=== PATIENT | male | born 1995 | race Caucasian/White ===

== ENCOUNTER 2016-05-27 21:19 | Emergency (ER) | payer OTHER ==
[~2016-05-27] VITALS: Ht 190.5 cm; Wt 93.0 kg
[2016-05-28 02:39] VITALS: BP 143/63
[2016-05-28] MEDS ORDERED: KETOROLAC 60 MG/2 ML VIAL (J1885) IM ONE (04:45)
[2016-05-28] MEDS ORDERED: ACETAMINOPHEN 325 MG TAB PO ONE (04:45)
[2016-05-28] MEDS ORDERED: KETOROLAC 30 MG/ML VIAL (J1885) As Ordered ONE (04:55)
--- NOTE | 2016-05-28 07:27 | ECGEPIP ---
Stationary ECG Study [facility] [place] - ED Test Date: 2016-05-27 Pat Name: ALAN MOORE Department: Room: - Gender: M [employer] Supervisor: eliel : 1995 Requested By: AMI PÉREZ Order Number: [id number] Reading MD: Andra Calderon Measurements Intervals [place] Rate: 87 P: 64 AL: 143 QRS: -13 QRSD: 90 T: 24 QT: 336 QTc: 405 Interpretive Statements SINUS RHYTHM INCREASED RATE 03/15/15 Electronically Signed On 05-28-2016 7:26:59 EDT by Andra Calderon
--- NOTE | 2016-05-28 08:09 | REP ---
Clinical: Acute cough . Comparison: 01/16/2016 . Technique: PA and lateral. Findings: The mediastinum and cardiac silhouette are normal. The lung goyal are clear and without acute consolidation, effusion, or pneumothorax. The skeletal structures are intact and normal. Impression: 1. No acute cardiopulmonary process. Signed by Ryan Mott MD 05/28/2016 08:01 A
== END 2016-05-28 06:18 | disposition home or self-care (01) ==
LOC: M ED 22:25
DX: B34.9 Viral infection, unspecified (principal); J45.909 Unspecified asthma, uncomplicated; F17.210 Nicotine dependence, cigarettes, uncomplicated
CPT/HCPCS: 71020; 87804; 93005; 96372; 99283; J1885

== ENCOUNTER 2017-09-13 13:58 | Emergency (ER) | payer SELFPAY, OTHER ==
[2017-09-13] MEDS ORDERED: LIDOCAINE 1% MDV 20ML VIAL As Ordered (14:59)
[2017-09-13] MEDS: LIDOCAINE 1% MDV 20ML VIAL SC (15:05)
== END 2017-09-13 15:45 | disposition home or self-care (01) ==
LOC: M ED 13:58
DX: S01.511A Laceration without foreign body of lip, initial encounter (principal); W01.190A Fall on same level from slipping, tripping and stumbling with subsequent striking against furniture, initial encounter; Y92.012 Bathroom of single-family (private) house as the place of occurrence of the external cause; F17.210 Nicotine dependence, cigarettes, uncomplicated
CPT/HCPCS: 12011

== ENCOUNTER 2017-09-18 11:55 | Emergency (ER) | payer SELFPAY, OTHER | END 2017-09-18 12:44 | disposition home or self-care (01) | LOC: M ED 11:55 | DX: Z48.02 Encounter for removal of sutures (principal); F17.210 Nicotine dependence, cigarettes, uncomplicated | CPT/HCPCS: 99282 ==

== ENCOUNTER 2018-01-01 21:26 | Emergency (ER) | payer SELFPAY ==
[2018-01-01] MEDS: KETOROLAC TROMETHAMINE 10 MG TAB PO (22:03)
== END 2018-01-01 23:03 | disposition home or self-care (01) ==
LOC: M ED 21:26
DX: M25.462 Effusion, left knee (principal); J45.909 Unspecified asthma, uncomplicated; F90.9 Attention-deficit hyperactivity disorder, unspecified type; F17.210 Nicotine dependence, cigarettes, uncomplicated
CPT/HCPCS: 73564

== ENCOUNTER 2018-09-18 17:49 | Emergency (ER) | payer SELFPAY ==
[~2018-09-18] VITALS: Ht 190.5 cm; Wt 96.8 kg
[~2018-09-18 17:49] MED LIST: KETO10TAB PO
[2018-09-18 23:05] VITALS: BP 131/81
== END 2018-09-18 23:07 | disposition home or self-care (01) ==
LOC: M ED 17:49
DX: I88.9 Nonspecific lymphadenitis, unspecified (principal); J45.909 Unspecified asthma, uncomplicated; F17.200 Nicotine dependence, unspecified, uncomplicated

== ENCOUNTER 2019-06-25 15:04 | Emergency (ER) | payer MEDICAID, SELFPAY ==
[~2019-06-25] VITALS: Ht 190.5 cm; Wt 90.7 kg
[2019-06-25] MEDS ORDERED: NALT50TA4 PO (15:09)
[2019-06-25] MEDS ORDERED: OLAN5TAB PO (15:09)
[2019-06-25] MEDS ORDERED: NS 1,000 ML IV ONE (15:30)
[2019-06-25] MEDS ORDERED: PANTOPRAZOLE 40MG VIAL (C9113 PER 1) IV ONE (15:30)
[2019-06-25] MEDS ORDERED: METOCLOPRAMIDE INJ 10MG/2ML VIAL (J2765 PER 1) IV ONE (15:30)
[2019-06-25 15:49] LABS: BASO # 0.1 10^3/uL (0.0-0.2); EOS # 0.2 10^3/uL (0.0-0.5); EOS % 3.5 % (0.0-3.0); HEMATOCRIT 43.7 % (42.0-52.0); HEMOGLOBIN 15.3 g/dl (13.5-17.5); LYMPH # 1.2 10^3/uL (1.5-5.0); LYMPH % 19.6 % (24.0-44.0); MEAN CORPUSCULAR HEMOGLOBIN 30.3 pg (27.0-33.0); MEAN CORPUSCULAR VOLUME 86.5 fl (80.0-96.0); MONO # 0.6 10^3/uL (0.0-0.8); MONO % 10.3 % (0.0-5.0); NEUTROPHILS # 3.9 10^3/uL (1.5-8.5); NEUTROPHILS % 65.3 % (36.0-66.0); PLATELET COUNT, AUTOMATED 228 10^3/uL (150-450); RED BLOOD COUNT 5.05 10^6/uL (4.30-6.10)
[2019-06-25] MEDS ORDERED: ISOVUE-370 76% 100ML VIAL As Ordered ONE (15:50)
[2019-06-25 16:19] LABS: ALBUMIN 3.9 GM/DL (3.2-5.2); ALT/SGPT 289 U/L (12-78); BILIRUBIN,DIRECT 0.3 MG/DL (0.0-0.2); BILIRUBIN,TOTAL 0.8 MG/DL (0.2-1.0); LIPASE 70 U/L (73-393); TOTAL PROTEIN 7.3 GM/DL (6.4-8.2)
[2019-06-25 16:23] LABS: MONO SCRN NEGATIVE (NEGATIVE)
[2019-06-25] MEDS ORDERED: ONDA4TAB6 PO (16:45)
[2019-06-25 16:59] VITALS: BP 118/67
[2019-06-26 10:05] LABS: HEPATITIS B SURFACE ANTIGEN NEGATIVE (NEGATIVE)
--- NOTE | 2019-06-26 10:12 | REP ---
CT ABDOMEN AND PELVIS WITH CONTRAST: TECHNIQUE: Axial contrast enhanced images from the lung bases to the pubic symphysis using 100 mL Isovue 370 intravenous contrast material with multiplanar reformations. Visualized lung bases are clear. The liver, spleen, adrenals, pancreas, and kidneys are unremarkable. There is no hydronephrosis. There are small gallstones in the dependent portion of the gallbladder. There appears to be diffuse gallbladder wall thickening and edema. There is no definite biliary dilatation. The findings may indicated cholecystitis. There is no abdominal aortic aneurysm. There is no adenopathy. There is no free air. No bowel wall thickening is seen. The appendix is normal. No pelvic mass is seen. Urinary bladder is unremarkable. IMPRESSION: Small gallstones in the gallbladder with diffuse gallbladder wall thickening and edema. Findings may indicate cholecystitis. No evidence of biliary dilatation. Electronically Signed by Rios Olvera MD 06/26/2019 11:54 A
[2019-06-26 10:32] LABS: HEPATITIS C VIRUS ABY INDEX 0.1 INDEX (<0.8)
[2019-06-26 10:33] LABS: HEPATITIS B CORE ANTIBODY IGM NEGATIVE (NEGATIVE)
[2019-06-26 10:35] LABS: HEPATITIS A ANTIBODY IGM NEGATIVE (NEGATIVE)
[2019-06-29] MEDS ORDERED: HYDR-3713 PO (13:22)
== END 2019-06-25 17:01 | disposition home or self-care (01) ==
LOC: M ED 15:04
DX: K80.20 Calculus of gallbladder without cholecystitis without obstruction (principal); F19.10 Other psychoactive substance abuse, uncomplicated; F43.10 Post-traumatic stress disorder, unspecified; F17.200 Nicotine dependence, unspecified, uncomplicated; F90.9 Attention-deficit hyperactivity disorder, unspecified type; Z98.890 Other specified postprocedural states; Z79.899 Other long term (current) drug therapy
CPT/HCPCS: 36415; 74177; 80047; 80076; 83690; 85025; 86308; 86705; 86709; 86803; 87340; 96361; 96374; 96375; 99284; C9113; J2765; Q9967

== ENCOUNTER → 2019-06-27 | Outpatient (CLI) | payer SELFPAY ==
[~2019-06-27] MED LIST changes: +HYDR-3713 PO; +NALT50TA4 PO; +OLAN5TAB PO; +ONDA4TAB6 PO
[2019-06-27 11:49] LABS: HEMATOCRIT 43.8 % (42.0-52.0); HEMOGLOBIN 15.6 g/dl (13.5-17.5); MEAN CORPUSCULAR HEMOGLOBIN 31.3 pg (27.0-33.0); MEAN CORPUSCULAR HGB CONC 35.6 g/dl (32.0-36.5); PLATELET COUNT, AUTOMATED 237 10^3/uL (150-450); RED BLOOD COUNT 4.98 10^6/uL (4.30-6.10); WHITE BLOOD COUNT 7.2 10^3/uL (4.0-10.0)
[2019-06-27 12:18] LABS: ALT/SGPT 240 U/L (12-78); BILIRUBIN,DIRECT 0.1 MG/DL (0.0-0.2); BILIRUBIN,TOTAL 0.5 MG/DL (0.2-1.0); BLOOD UREA NITROGEN 12 MG/DL (7-18); CARBON DIOXIDE LEVEL 31 MEQ/L (21-32); CHLORIDE LEVEL 107 MEQ/L (98-107); CREATININE FOR GFR 0.82 MG/DL (0.70-1.30); GLOMERULAR FILTRATION RATE > 60.0 (>60); GLUCOSE, FASTING 86 MG/DL (70-100); POTASSIUM SERUM 4.4 MEQ/L (3.5-5.1); SODIUM LEVEL 141 MEQ/L (136-145); TOTAL PROTEIN 7.3 GM/DL (6.4-8.2)
== END ==
LOC: M LAB 11:24
PROVIDERS: ATTEND Surgery
DX: K80.00 Calculus of gallbladder with acute cholecystitis without obstruction (principal)

== ENCOUNTER → 2019-07-03 | Outpatient (CLI) | payer OTHER, SELFPAY | LOC: M LABSMTC 09:33 | PROVIDERS: ATTEND Anesthesiology | DX: Z01.818 Encounter for other preprocedural examination (principal); Z11.59 Encounter for screening for other viral diseases ==

== ENCOUNTER 2019-07-06 06:09 | Day surgery (SDC) | payer OTHER, SELFPAY ==
[~2019-07-06] VITALS: Ht 190.5 cm; Wt 89.3 kg
[2019-07-06] MEDS ORDERED: LR 1,000 ML IV ONE (07:00)
[2019-07-06] MEDS ORDERED: AMPICILLIN SOD/SULBACTAM SOD 3 GM in D5W MINI-BAG PLUS 100 ML IV ONE (07:00)
[2019-07-06] MEDS ORDERED: CONRAY-60 60% 50ML VIAL (Q9961) As Ordered ONE (07:15)
[2019-07-06] MEDS ORDERED: LIDOCAINE 1% SDV 30ML VIAL As Ordered ONE (07:15)
[2019-07-06] MEDS ORDERED: BUPIVACAINE HCL 0.25% 30ML VIAL As Ordered ONE (07:16)
[2019-07-06] MEDS ORDERED: MIDAZOLAM INJ 2MG/2ML VIAL (J2250 PER 1MG) As Ordered ONE (07:17)
[2019-07-06] MEDS ORDERED: ONDANSETRON 4MG/2ML VIAL As Ordered ONE (07:17)
[2019-07-06] MEDS ORDERED: LIDOCAINE 2% 100MG/5ML SDV (FOR ANES.) As Ordered ONE (07:17)
[2019-07-06] MEDS ORDERED: dexameTHASONE 4 MG/ML 1ML VIAL (J1100 PER 1MG) As Ordered ONE (07:17)
[2019-07-06] MEDS ORDERED: ROCURONIUM BROMIDE 50 MG/5 ML VIAL As Ordered ONE ×2 (07:17→08:02)
[2019-07-06] MEDS ORDERED: propofoL 200 MG/20 ML VIAL As Ordered ONE (07:17)
[2019-07-06] MEDS ORDERED: fentaNYL 250 MCG/5 ML INJECTION (J3010) As Ordered ONE (07:17)
[2019-07-06] MEDS ORDERED: ACETAMINOPHEN 1000MG 100ML IV BTL (OFIRMEV) (J0131 PER 10MG) As Ordered ONE (07:17)
[2019-07-06] MEDS ORDERED: KETOROLAC 60 MG/2 ML VIAL As Ordered ONE (07:17)
[2019-07-06] MEDS ORDERED: GLYCOPYRROLATE INJ 0.2 MG/ML 2 ML VIAL As Ordered ONE (07:54)
[2019-07-06] MEDS ORDERED: ePHEDrine SULFATE 25 MG/5 ML(5MG/ML) SYRINGE As Ordered ONE (07:58)
[2019-07-06] MEDS ORDERED: SUGAMMADEX SODIUM 500 MG/5 ML VIAL (BRIDION) As Ordered ONE (08:11)
[2019-07-06] MEDS ORDERED: GLUCAGON INJ 1MG VIAL As Ordered ONE (08:35)
[2019-07-06] MEDS ORDERED: HYDR-3713 PO (09:39)
[2019-07-06] MEDS ORDERED: ONDANSETRON 4MG/2ML VIAL IV PRN ×2 (09:45)
[2019-07-06] MEDS ORDERED: KETOROLAC 30 MG/ML 1ML VIAL IV PRN (09:45)
[2019-07-06] MEDS ORDERED: NORCO, ANEXSIA 5/325MG TABLET (HYDROcodone/ACETAMINOPHEN) PO PRN (09:45)
[2019-07-06] MEDS ORDERED: METOCLOPRAMIDE INJ 10MG/2ML VIAL (J2765 PER 1) IV PRN (09:45)
[2019-07-06] MEDS ORDERED: LR 1,000 ML IV SCH (09:45)
[2019-07-06] MEDS ORDERED: fentaNYL 100 MCG/2 ML INJECTION (J3010) IV PRN (09:45)
[2019-07-06] MEDS ORDERED: PERCOCET 5MG/325MG TAB PO PRN (09:45)
--- NOTE | 2019-07-06 09:47 | REP ---
INTRAOPERATIVE CHOLANGIOGRAM: Two views. HISTORY: Laparoscopic cholecystectomy with intraoperative cholangiogram. 34 seconds of fluoroscopy time is reported. FINDINGS: A sequence two last image hold fluoroscopically obtained spot radiographs of the right upper quadrant documents cystic duct contrast injection. No filling defect is seen in the biliary tract as visualized. The duodenum is seen to be opacifying. Electronically Signed by David Quiles MD 07/06/2019 11:53 A
--- NOTE | 2019-07-06 10:32 | ROOPDOC ---
[facility] Report Of Operation Report of Operation DATE OF PROCEDURE: 07/06/19 PREPROCEDURE DIAGNOSES: Cholelithiasis, Acute Cholecystitis. POSTPROCEDURE DIAGNOSES: Cholelithiasis, Acute Cholecystitis. PROCEDURE: Laparoscopic Cholecystectomy with intraoperative cholangiogram., right side transversus abdominis block under Laparoscopic guidance (1% lidocaine and 1/4% marcaine 50 mLs) SURGEON: Efraín Blanchard MD PATIENT LIAISON: ANESTHESIA: General Anesthesia. ESTIMATED BLOOD LOSS: Approximately 20 mL. COMPLICATIONS: none. REMARKS: Patient is a 23-year-old male was seen in the emergency room roughly 2 weeks ago with acute onset of epigastric and right upper quadrant discomfort as well as findings of elevated LFTs mainly the AST and ALT within normal bilirubin diagnosed presumably with either biliary colic or mild acute cholecystitis and was sent to the clinic as an outpatient. Repeat LFT shows normalization of the AST and ALT and no leukocytosis. He is scheduled today for laparoscopic cholecystectomy with intraoperative cholangiogram. PROCEDURE NOTE: Healthy-appearing liver with no nodularities. Distended relatively thin-walled gallbladder minimal acute swelling noted especially at the posterior wall. No ischemia or perforation. Multiple small stones noted within the gallbladder and likewise within the cystic duct which was milked out. DESCRIPTION OF PROCEDURE: Patient was given a dose Unasyn 3 g IV preoperatively for prophylaxis. He was brought to the operating room, laid supine on the table, compression boots placed for DVT prophylaxis. General endotracheal anesthesia started. Her abdomen then prepped and draped in usual sterile fashion. Surgical timeout was performed prior to starting surgery. Entry into the abdomen done through an incision below the umbilicus. A Veress needle was inserted with a controlled fashion. CO2 insufflation started to pressure 15 mmHg. Using the same incision a 5 mm Visiport was placed under direct vision laparoscope. The area underneath the insertion site was inspected and no injury found. She was then placed in steep reverse Trendelenburg. Her right side was tilted up to further expose the gallbladder. Under direct vision a 11 mm epigastric port and 25 mm working ports placed along the right subcostal line. Under laparoscopic visualization, using the training half inch spinal needle transversus abdominis plane block was performed using a combination of 1% lidocaine and 1/4% Marcaine along the right lateral abdominal wall. Operative findings: Liver appears smooth in contour no visible abnormalities. He is thin omentum covering most of the bowels. The gallbladder was noted to be modestly distended but rather soft, no severe inflammation, ischemia is noted. There are free floating stones within the lower body of the gallbladder. A tongue of omentum is adhered to the underside of the wall of the gallbladder. The fundus of the gallbladder was grasped and the gallbladder was elevated superiorly exposing the neck of the gallbladder. The attached omentum was lysed sharply with cautery from the gallbladder wall. The peritoneum overlying the area was opened up and dissected free both anteriorly and posteriorly to help with retraction of the gallbladder. The hepatocystic triangle was approached and dissected using a [place] and instrument. The cystic duct was identified coming off from the next gallbladder this was circumferentially dissected. The cystic artery was identified in its usual position medially behind a small lymph node of Cal[place]. This was similarly circumferentially dissected off surrounding adipose tissue. We continued posterior dissection proximally at the next gallbladder until a critical view of safety was achieved whereby only the previously identified duct and artery coursing through the neck the gallbladder. A clip was placed at the gallbladder, cystic duct junction. A partial cystotomy was created on the cystic duct below the clip. Initially there wasn't any reflux of bile back. I milked the cystic duct and got friable stones out of the duct with drainage of clear bile afterwards. A cholangiogram catheter was then threaded through the opening towards the common bile duct and the balloon inflated. We tested this and noted good flow without leakage around the cystotomy. A clip was placed temporarily to hold the catheter. The abdomen was deflated, the C-arm position and placed. He was placed in a slight Trendelenburg position tilted towards her right. He was given 1 mg of glucagon IV by anesthesia on my instruction. The fluoroscopic C-arm was positioned in place. Under fluoroscopic view, I performed a cholangiogram. The biliary tree was identified and opacified. It is a normal course and caliber. No strictures or filling defects were found. The contrast went through the duodenum. This ended the cholangiogram. The C-arm was then removed from the field. The abdomen was then insufflated and she was positioned in the usual reverse Trendelenburg position. After again checking his anatomy and verifying that the previously identified cystic duct, this was also clipped 4 times and divided. The cystic artery was clipped 4 times as well and divided between the clips. The rest of the gallbladder was then dissected free of the gallbladder bed using Bovie cautery. There was minimal bleeding at the lateral gallbladder attachments to the liver capsule this was easily controlled with Bovie cautery. The gallbladder was then placed in an Endo Catch bag and retrieved outside through the epigastric port site. After re-insufflation I inspected the clips and noted this to be in place. No bleeding noted. No bile leakage noted. The epigastric fascial defect was closed with 0 Vicryl in an interrupted fashion using a Vincent-Ra device. The abdomen was deflated, all ports were removed. The skin incisions closed with 4-0 Monocryl in subcuticular fashion. Steri-Strips and gauze dressings were placed, the wound. Patient was informed they awakened, extubated and brought to recovery room stable EFRAÍN BLANCHARD MD July 06, 2019 10:31
[2019-07-06 11:10] VITALS: BP 136/74
== END 2019-07-06 11:30 | disposition home or self-care (01) ==
LOC: M SDC 06:09
PROVIDERS: ATTEND Surgery
DX: K80.10 Calculus of gallbladder with chronic cholecystitis without obstruction (principal); J45.909 Unspecified asthma, uncomplicated; Z79.899 Other long term (current) drug therapy; F43.10 Post-traumatic stress disorder, unspecified; F32.9 Major depressive disorder, single episode, unspecified; F41.9 Anxiety disorder, unspecified; F17.218 Nicotine dependence, cigarettes, with other nicotine-induced disorders
CPT/HCPCS: 47563; 64488; 76000; 88304; J0131; J1100; J1610; J1885; J2250; J2405; J3010; Q9961

== ENCOUNTER 2019-08-06 15:08 | Emergency (ER) | payer OTHER ==
[~2019-08-06] VITALS: Ht 190.5 cm; Wt 94.5 kg
[2019-08-06] MEDS ORDERED: PARO5TAB PO (15:23)
[2019-08-06] MEDS ORDERED: NS 1,000 ML IV ONE (15:45)
[2019-08-06 16:16] LABS: BASO % 0.4 % (0.0-1.0); EOS # 0.3 10^3/uL (0.0-0.5); EOS % 2.9 % (0.0-3.0); HEMATOCRIT 39.5 % (42.0-52.0); HEMOGLOBIN 14.1 g/dl (13.5-17.5); LYMPH # 1.6 10^3/uL (1.5-5.0); LYMPH % 18.8 % (24.0-44.0); MEAN CORPUSCULAR HEMOGLOBIN 30.8 pg (27.0-33.0); MEAN CORPUSCULAR HGB CONC 35.7 g/dl (32.0-36.5); MEAN CORPUSCULAR VOLUME 86.2 fl (80.0-96.0); MONO % 11.5 % (0.0-5.0); NEUTROPHILS # 5.6 10^3/uL (1.5-8.5); NEUTROPHILS % 66.2 % (36.0-66.0); PLATELET COUNT, AUTOMATED 233 10^3/uL (150-450); RED BLOOD COUNT 4.58 10^6/uL (4.30-6.10); WHITE BLOOD COUNT 8.5 10^3/uL (4.0-10.0)
[2019-08-06] MEDS: GASTROGRAFIN SOLUTION 30ML PO SCH ×2 (16:17→16:45)
[2019-08-06 16:39] LABS: ALBUMIN 3.5 GM/DL (3.2-5.2); ALT/SGPT 47 U/L (12-78); BILIRUBIN,DIRECT 0.1 MG/DL (0.0-0.2); BILIRUBIN,TOTAL 0.5 MG/DL (0.2-1.0); BLOOD UREA NITROGEN 13 MG/DL (7-18); CALCIUM LEVEL 8.2 MG/DL (8.5-10.1); CARBON DIOXIDE LEVEL 26 MEQ/L (21-32); CHLORIDE LEVEL 107 MEQ/L (98-107); CREATININE FOR GFR 0.96 MG/DL (0.70-1.30); GLOMERULAR FILTRATION RATE > 60.0 (>60); GLUCOSE, FASTING 114 MG/DL (70-100); LIPASE 51 U/L (73-393); POTASSIUM SERUM 3.9 MEQ/L (3.5-5.1); SODIUM LEVEL 139 MEQ/L (136-145); TOTAL PROTEIN 6.8 GM/DL (6.4-8.2)
[2019-08-06] MEDS ORDERED: ISOVUE-370 76% 100ML VIAL As Ordered ONE (17:34)
--- NOTE | 2019-08-06 18:12 | REPVR ---
PROCEDURE INFORMATION: Exam: CT Abdomen And Pelvis With Contrast Exam date and time: 08/06/2019 5:44 PM Age: 23 years old Clinical indication: Abdominal pain; Prior surgery; Surgery date: 3-7 days post-operative; Surgery type: Ariana; Additional info: Right sided abd pain S/P cholecystectomy TECHNIQUE: Imaging protocol: Computed tomography of the abdomen and pelvis with intravenous contrast. Radiation optimization: All CT scans at this facility use at least one of these dose optimization techniques: automated exposure control; mA and/or kV adjustment per patient size (includes targeted exams where dose is matched to clinical indication); or iterative reconstruction. Contrast material: ISOVUE 370; Contrast volume: 100 ml; Contrast route: IV; COMPARISON: CT ABD/PEL W/IV CONTRAST ONLY 06/25/2019 3:50 PM FINDINGS: Lungs: There is linear linear atelectasis or fibrosis at the right lung base. Liver: There is mild hepatic steatosis. No focal lesion. Gallbladder and bile ducts: Status post cholecystectomy. Bile ducts are not dilated. The no inflammation at the site of surgery. Pancreas: The pancreas is normal. Spleen: There is mild splenomegaly, 14 cm. No focal lesion. Adrenals: The adrenal glands are normal. Kidneys and ureters: The kidneys are normal.No hydronephrosis. Stomach and bowel: Unremarkable. No obstruction. No mucosal thickening. Appendix: The appendix is well visualized and is normal. Intraperitoneal space: There is no free fluid or fluid collection. There is no free air. Vasculature: Unremarkable. No abdominal aortic aneurysm. Lymph nodes: Unremarkable. No enlarged lymph nodes. Bladder: The bladder is normal with no evidence of calculi. Reproductive: Unremarkable Bones/joints: Unremarkable. No acute fracture. Soft tissues: No inflammatory changes or fluid collection in the anterior abdominal wall. IMPRESSION: Interval cholecystectomy since the previous scan. No acute findings. Electronically signed by: Edgard Howard On 08/06/2019 18:12:06 PM
[2019-08-06] MEDS ORDERED: ZOFR4TAB16 PO (19:19)
[2019-08-06 19:24] VITALS: BP 133/72
== END 2019-08-06 19:32 | disposition home or self-care (01) ==
LOC: M ED 15:08
DX: R10.9 Unspecified abdominal pain (principal); R11.10 Vomiting, unspecified; R19.7 Diarrhea, unspecified; F17.200 Nicotine dependence, unspecified, uncomplicated; Z79.899 Other long term (current) drug therapy
CPT/HCPCS: 74177; 80048; 80076; 83690; 85025; 93041; 96360; 99284; Q9963; Q9967

== ENCOUNTER 2020-01-07 12:48 | Emergency (ER) | payer OTHER ==
[~2020-01-07] VITALS: Ht 190.5 cm; Wt 97.5 kg
[~2020-01-07 12:48] MED LIST changes: +PARO5TAB PO; +ZOFR4TAB16 PO
[2020-01-07] MEDS ORDERED: WELLTAB38 PO (12:55)
[2020-01-07 14:35] VITALS: BP 133/80
--- NOTE | 2020-01-07 14:58 | REP ---
INDICATION: left groin pain ? inguinal hernia. COMPARISON: CT abdomen pelvis 08/06/2019 TECHNIQUE: Scanning of both ago inguinal regions without and with Valsalva maneuver. FINDINGS: Right Side: The right side inguinal ring shows a small defect that has some echogenic fat. This is only seen on Valsalva maneuver and is reducible. The AP diameter is 7.7 mm at rest in a 9.2 mm with Valsalva. Left-side: The left inguinal ring has a more echogenic and thickened appearance. Within the ring are 2 hypoechoic areas 11 x 9 x 7 mm and another 7 x 8 x 9 mm. This area is not reducible. Canal diameter up to 1.6 cm. This separate echogenic area with hypoechoic components of moves with Valsalva but does not reduce. IMPRESSION: 1. Non reducible fullness in the left inguinal ring with 2 adjacent areas 11 x 9 and 9 x 8 mm respectively which moved together with Valsalva maneuver and relaxation but do not reduce. There is no bowel within this herniated tissue. 2. The right inguinal canal shows fat extending into the canal and reducing from Valsalva maneuver to relaxation. <Electronically signed by Sukumar Sparks > 01/07/20 [id number]
[2020-01-07] MEDS ORDERED: IBUP80TA PO (15:25)
== END 2020-01-07 15:42 | disposition home or self-care (01) ==
LOC: M ED 12:48
DX: R10.30 Lower abdominal pain, unspecified (principal); F17.200 Nicotine dependence, unspecified, uncomplicated; Z79.899 Other long term (current) drug therapy

== ENCOUNTER 2020-02-15 11:56 | Day surgery (SDC) | payer OTHER ==
[~2020-02-15] VITALS: Ht 190.5 cm; Wt 95.3 kg
[~2020-02-15 11:56] MED LIST changes: +IBUP80TA PO; +LIDOCAINE 2% 100MG/5ML SDV (FOR ANES.) As Ordered ONE; +LR 1,000 ML IV ONE; +MIDAZOLAM INJ 2MG/2ML VIAL (J2250 PER 1MG) As Ordered ONE; +ONDANSETRON 4MG/2ML VIAL As Ordered ONE; +ROCURONIUM BROMIDE 50 MG/5 ML VIAL As Ordered ONE; +WELLTAB38 PO; +ceFAZolin SOD 2 GM in IV 1 EA IV ONE; +dexameTHASONE 4 MG/ML 1ML VIAL (J1100 PER 1MG) As Ordered ONE; +fentaNYL 100 MCG/2 ML INJECTION (J3010) As Ordered ONE; +propofoL 200 MG/20 ML VIAL As Ordered ONE
[2020-02-15] MEDS ORDERED: CelecoXIB (CeleBREX) 100 MG CAP PO ONE (13:00)
[2020-02-15] MEDS ORDERED: BUPIVACAINE HCL 0.25% 30ML VIAL As Ordered ONE (14:38)
[2020-02-15] MEDS ORDERED: LIDOCAINE 1% SDV 30ML VIAL As Ordered ONE (14:38)
--- NOTE | 2020-02-15 15:11 | ECGEPIP ---
[facility] Test Date: 2020-02-15 Pat Name: ALAN MOORE Department: Room: - Gender: Male Dip [place]: SHERRY : 1995 Requested By: CARLO Russell Order Number: [id number] Reading MD: Luis Patton Measurements Intervals [place] Rate: 53 P: 40 OR: 158 QRS: -15 QRSD: 107 T: 3 QT: 421 QTc: 397 Interpretive Statements Sinus bradycardia Slight leftward axis Prominent voltage aVL Findings not definitely outside normal limits for age. Other than slower rate no change from 05/27/16. Electronically Signed on 02-15-2020 15:11:00 EST by Luis Patton
[2020-02-15] MEDS ORDERED: ACETAMINOPHEN 1000MG 100ML IV BTL (OFIRMEV) (J0131 PER 10MG) As Ordered ONE (15:27)
[2020-02-15] MEDS ORDERED: GLYCOPYRROLATE INJ 0.2 MG/ML 2 ML VIAL As Ordered ONE (15:32)
[2020-02-15] MEDS ORDERED: fentaNYL 100 MCG/2 ML INJECTION (J3010) As Ordered ONE (15:35)
[2020-02-15] MEDS ORDERED: ROCURONIUM BROMIDE 50 MG/5 ML VIAL As Ordered ONE (15:37)
[2020-02-15] MEDS ORDERED: KETOROLAC 60MG 2ML VIAL As Ordered ONE (15:38)
[2020-02-15] MEDS ORDERED: SUGAMMADEX SODIUM 500 MG/5 ML VIAL (BRIDION) As Ordered ONE (15:38)
[2020-02-15] MEDS ORDERED: MEPERIDINE INJ 25 MG/ML VIAL (J2175) IV PRN (17:45)
[2020-02-15] MEDS ORDERED: fentaNYL 100 MCG/2 ML INJECTION (J3010) IV PRN (17:45)
[2020-02-15] MEDS ORDERED: oxyCODONE 5MG TAB PO PRN (17:45)
[2020-02-15] MEDS ORDERED: LR 1,000 ML IV SCH (17:45)
[2020-02-15] MEDS ORDERED: ONDANSETRON 4MG/2ML VIAL IV PRN ×2 (17:45)
[2020-02-15] MEDS ORDERED: KETOROLAC 30 MG/ML 1ML VIAL IV PRN (17:45)
[2020-02-15] MEDS ORDERED: PERCOCET 5MG/325MG TAB PO PRN (17:45)
[2020-02-15] MEDS ORDERED: METOCLOPRAMIDE INJ 10MG/2ML VIAL (J2765 PER 1) IV PRN (17:45)
[2020-02-15 18:15] VITALS: BP 122/71
--- NOTE | 2020-03-13 00:43 | ROOPDOC ---
[facility] [place] Report of Operation DATE OF PROCEDURE: 02/15/20 PREPROCEDURE DIAGNOSES: left inguinal hernia. POSTPROCEDURE DIAGNOSES: left cord lipoma. PROCEDURE: Robotic assisted laparoscopic left inguinal hernia repair with mesh (rTAPP). SURGEON: rFanco Blanchard MD CATERING ATTENDANT: ANESTHESIA: General Anesthesia. ESTIMATED BLOOD LOSS: Approximately 10 mL. COMPLICATIONS: none. REMARKS: 15x10 cm Parietex Progrip mesh placed PROCEDURE NOTE: . DESCRIPTION OF PROCEDURE: . Patient received 2 g of Ancef IV preoperatively for wound prophylaxis. Patient was brought to the operating room, placed supine on the operating table. Compression boots placed in both lower extremities for DVT prophylaxis. After adequate general anesthesia started, he was positioned on the table with both arms tucked. His abdomen and groin/pelvic area then prepped and draped in the usual sterile fashion. We paused for a surgical timeout using both pre-incision safety checklist to verify correct patient, procedure site and additional clinical information prior to beginning the procedure Entry to the abdomen done through a small incision about 4 cms above the umbilical skin cleft. A Veress needle is inserted on a controlled fashion. CO2 insufflation started to pressure 15 mmHg. Using the same incision a 8 mm robotic troccar then placed under direct vision of laparoscope. The insertion site was inspected for injury and none was found. Patient was then positioned on a mild Trendelenburg position. Two working ports placed to the right and left of the camera trocar along the same line 10 -12 cms apart. The da Dayana robot tower was then positioned in place and the trocars docked to the robotic arms. I then unscrubbed and took control of the camera and the laparoscopic instruments at the surgeon's console. A Forced bipolar forceps with bipolar cautery and A robotic scissor with unipolar cautery was used. Operative Findings: On diagnostic laparoscopy, No peritoneal defect is noted on the right side. On the left side, there is also no obvious peritoneal defect at the MPO. I explored the left MPO. The peritoneum was opened up about 7 cms above the indirect opening (lateral to the inferior epigastrics) starting at the medial umbilical ligament (divided) going in an arc-like fashion laterally towards the level of the anterior superior iliac spine. This was then dissected mostly bluntly away from the abdominal wall. Both the lateral side and medial side were bluntly opened up. Medially this was extended to past the symphisis pubis and 2 cms inferior to the pubic tubercle . The direct spacee was explored. The floor is slightly thinned out but no obvious hernia. This was containing a small amount of nodular fat tissue which was removed. The indirect space was explored revealing a bulky cord lipoma. This was reduced and from the testicular vessels and vas deferens, leaving these structures in their anatomic postion with their enveloping fascia intact. Laterally this was extended in the same plane and along the same depth as the space of Bog[place]. The testicular vessels and vas deferens remained largely in placed with their investing fascia mostly intact with minimal manipulation of the cord structures. The bridging fibrous structures off the medial space of retzius and lateral space of bogros were connected with parietalization of the vas deferens. I tested the flap to make sure there is adequate space for placement of mesh without lifting or clam shelling of the mesh. After fully dissecting the preperitoneal space, we checked for adequate hemostasis. I chose a 15x10 cms Parietex Pro [employer] Professor self fixating mesh. This was folded with the center of the mesh marked for positioning. This was then delivered intra- abdominally through one of the trochars. In a controlled fashion this was positioned into the preperitoneal space with the medial side towards the pubic tubercle past the symphisis pubis and the previously marked center of the mesh abutting the inferior epigastric vessels as it approaches the internal ring. The mesh was then carefully unfolded and positioned in place with adequate overlap around the internal ring to cover the hernia defects including that of the identified small right femoral hernia. This was carefully pressed onto the abdominal wall and made sure that it was flattened up. No added fixations were used. I again tested closing the flap making sure that the mesh remains intact without movement or clam shelling. The peritoneal flap was then closed with a running suture of 30V LOC starting laterally going medially with tacking of the extra hernia sac towards the umbilical ligament. I then surveyed the abdomen and pelvis for any signs of injury. Once satisfied I scrubbed back in. The instruments were removed. The abdomen was deflated. All ports were removed. The skin incisions were closed with 4-0 Monocryl in subcuticular fashion. The incisions were covered with Dermabond. The port sites were again infiltrated with local anesthesia. An ilioinguinal nerve block was also performed. FRANCO BLANCHARD MD Mar 13, 2020 00:43
== END 2020-02-15 18:30 | disposition home or self-care (01) ==
LOC: M SDC 11:56
PROVIDERS: ATTEND Surgery
DX: D17.6 Benign lipomatous neoplasm of spermatic cord (principal); F17.210 Nicotine dependence, cigarettes, uncomplicated; F32.9 Major depressive disorder, single episode, unspecified; F41.9 Anxiety disorder, unspecified; F43.10 Post-traumatic stress disorder, unspecified; K21.9 Gastro-esophageal reflux disease without esophagitis; R06.02 Shortness of breath; R07.9 Chest pain, unspecified
CPT/HCPCS: 49650; 93005; C1781; J0131; J0690; J1100; J1885; J2250; J2405; J3010; U0002

== ENCOUNTER 2020-05-08 09:59 | Emergency (ER) | payer OTHER ==
[~2020-05-08] VITALS: Ht 190.5 cm; Wt 99.3 kg
[~2020-05-08 09:59] MED LIST changes: -LIDOCAINE 2% 100MG/5ML SDV (FOR ANES.) As Ordered ONE; -LR 1,000 ML IV ONE; -MIDAZOLAM INJ 2MG/2ML VIAL (J2250 PER 1MG) As Ordered ONE; -ONDANSETRON 4MG/2ML VIAL As Ordered ONE; -ROCURONIUM BROMIDE 50 MG/5 ML VIAL As Ordered ONE; -ceFAZolin SOD 2 GM in IV 1 EA IV ONE; -dexameTHASONE 4 MG/ML 1ML VIAL (J1100 PER 1MG) As Ordered ONE; -fentaNYL 100 MCG/2 ML INJECTION (J3010) As Ordered ONE; -propofoL 200 MG/20 ML VIAL As Ordered ONE
[2020-05-08 10:09] VITALS: BP 130/78
== END 2020-05-08 11:11 | disposition left against medical advice (07) ==
LOC: M ED 09:59
DX: R10.30 Lower abdominal pain, unspecified (principal)

== ENCOUNTER 2020-09-09 19:32 | Emergency (ER) | payer OTHER ==
[~2020-09-09] VITALS: Ht 190.5 cm; Wt 96.4 kg
[2020-09-09 19:32] VITALS: BP 118/60
[~2020-09-09 19:32] MED LIST changes: +OLAN1TAB16 PO; -OLAN5TAB PO
== END 2020-09-09 23:29 | disposition left against medical advice (07) ==
LOC: M ED 19:32
DX: Z53.21 Procedure and treatment not carried out due to patient leaving prior to being seen by health care provider (principal)

== ENCOUNTER 2020-09-30 01:15 | Emergency (ER) | payer OTHER ==
[~2020-09-30] VITALS: Ht 190.5 cm; Wt 93.2 kg
[2020-09-30 01:15] VITALS: BP 166/99
== END 2020-09-30 05:00 | disposition left against medical advice (07) ==
LOC: M ED 01:15
DX: Z53.21 Procedure and treatment not carried out due to patient leaving prior to being seen by health care provider (principal)